=== PATIENT | male | born 1955 | race Caucasian/White ===

== ENCOUNTER → 2020-06-05 07:50 | Outpatient (CLI) | payer OTHER, SELFPAY ==
--- NOTE | 2020-06-05 07:59 | US_ITS ---
STUDY: ABDOMINAL ULTRASOUND - RIGHT UPPER QUADRANT REASON FOR VISIT: Male, 64 years old right upper quadrant pain, nausea TECHNIQUE: Ultrasound evaluation of the right upper quadrant was performed with real-time and static cervantes-scale imaging. TECHNICAL QUALITY: Adequate. COMPARISON: None. FINDINGS: Liver: The liver measures 15.8 cm. There is increased echogenicity consistent with fatty infiltration. The bile ducts are within normal limits. There is hepatic color flow. The direction of portal flow is hepatopetal. There is no demonstrated mass lesion. Gallbladder: The gallbladder is contracted, with multiple echogenic shadowing gallstones and wall thickening. Gallbladder wall measures up to 3.6 mm in thickness. Images show evidence of a JAROCHO sign which is suspicious for cholecystitis Common Bile Duct (C.B.D.): The common bile duct measures 3.7 mm. Pancreas: Normal size of the head, body and tail of the pancreas. There is increased echogenicity of the pancreas. There is no demonstrated pancreatic mass or cyst. Right Kidney: Normal size of the right kidney. The right kidney measures 10.5 x 5.4 x 5.4 cm. Normal renal cortex. The right cortex measures 1.6 cm. There is no demonstrated renal mass or cyst. There is no right hydronephrosis. US/Abdomen Limited IMPRESSION: Contracted gallbladder with multiple shadowing echogenic gallstones and abnormal wall thickness. Images show a JAROCHO sign suspicious for cholecystitis. However, corporate security officer notes a negative Pacheco''s sign and there is no pericholecystic fluid. If physical findings are equivocal, a HIDA scan may be of benefit for further evaluation Diffuse fatty infiltration of the liver, no discrete lesion Electronically Signed: Wilian Bender MD at 10:50 EDT , Service support ,
== END ==
PROVIDERS: PCP Family Medicine; Referring Provider Family Medicine; Visit Provider Family Medicine
DX: K80.20 Calculus of gallbladder without cholecystitis without obstruction (principal)
CPT/HCPCS: 76705

== ENCOUNTER → 2020-07-31 13:58 | Outpatient (CLI) | payer OTHER, SELFPAY ==
[2020-07-03 15:11] VITALS: BMI 31.7
--- NOTE | 2020-07-31 13:44 | EKG12_ITS ---
Test Reason : PREOP Blood Pressure : / mmHG Vent. Rate : 061 BPM Atrial Rate : 061 BPM P-R Int : 150 ms QRS Dur : 086 ms QT Int : 412 ms P-R-T Axes : 064 071 133 degrees QTc Int : 414 ms Normal sinus rhythm ST & T wave abnormality, consider lateral ischemia Abnormal ECG Confirmed by TEDDY CARRENO, KEZIA ([id number]), publications editor FIFI GARCIA ([id number]) on 08/04/2020 10:21:05 AM Referred By: Marcos Hart Confirmed By:KEZIA ESPINAL MD
[2020-07-31 14:43] LABS: Hematocrit 46.8 % (40-54); Hemoglobin 15.5 g/dL (13.0-16.5); Mean Corp Hgb Conc 33.1 g/dL (32-36); Mean Corpuscular Hgb 28.9 pg (27.0-32.0); Mean Corpuscular Volume 87.2 fL (80-94); Platelet Count 179 K/mm3 (150-450); RBC Distribution Width CV 12.9 % (11.6-14.6); RBC Distribution Width SD 40.7 fl (35.1-43.9); Red Blood Count 5.37 M/mm3 (4.6-6.2); White Blood Count 6.5 K/mm3 (4.4-11.0)
[2020-07-31 15:13] LABS: Anion Gap 5 (5-15); BUN 22 mg/dL (7-18); BUN/Creat Ratio 17.3 RATIO (10-20); Calcium,Total 9.5 mg/dL (8.5-10.1); Chloride 106 mmol/L (98-107); Creatinine, Serum 1.27 mg/dL (0.70-1.30); EST Glomerular Filtration Rate 61 mL/min (>60); Est Glom Filt Rate - Afr Amer 74 mL/min (>60); Glucose 104 mg/dL (74-106); Potassium 4.3 mmol/L (3.5-5.1); Sodium Level 138 mmol/L (136-145)
== END ==
PROVIDERS: PCP Family Medicine; Referring Provider Surgery; Visit Provider Surgery
DX: Z01.818 Encounter for other preprocedural examination (principal); Z20.828 Contact with and (suspected) exposure to other viral communicable diseases
CPT/HCPCS: 36415; 80048; 85027; 87426; 93005; C9803

== ENCOUNTER → 2020-09-02 07:10 | Outpatient (CLI) | payer OTHER, SELFPAY ==
[2020-08-14 11:47] VITALS: BMI 31.9
--- NOTE | 2020-09-02 07:14 | ECHOCS_ITS ---
Version 2 Reason For Study: HTN Procedure This was a 2D Doppler, Color Flow transthoracic echocardiogram. The study was technically difficult. Contrast injection was performed. DEFINITY REACTION (chest pain and back pain) DO NOT USE IN FUTURE. Exam performed in department. Left Ventricle Normal LV size. Mild concentric left ventricular hypertrophy. Left ventricular systolic function is normal. The estimated ejection fraction is 65 %. Stage 1 diastolic dysfunction. No regional wall motion abnormalities noted. Right Ventricle Normal RV size. Normal systolic function. Atria Normal left atrium. Normal right atrium. Mitral Valve Normal mitral valve. Tricuspid Valve Normal tricuspid valve. Aortic Valve Normal aortic valve. Pulmonic Valve Normal pulmonic valve. Great Vessels Normal aortic root. The pulmonary artery is normal size. Normal inferior vena cava. Pericardium/Pleural No pericardial effusion. Medication 22 gauge I.V. with prn adaptor inserted into right arm. Diluted definity 3ml given slow IV push to enhance endocardial definition. MMode/2D Measurements & Calculations LVIDd: 4.9 cm IVSd: 1.3 cm Ao root diam: 3.5 cm LVIDs: 2.9 cm LVPWd: 1.3 cm LA dimension: 4.5 cm FS: 41.5 % LAV(MOD-bp): 63.4 ml LA A4 area: 20.9 cm2 RA A4 area: 19.6 cm2 LAV(MOD-bp) Indexed: 30.4 ml/m2 LAV(MOD-sp2): 57.6 ml LAV(MOD-sp4): 62.3 ml Time Measurements MV dec time: 0.24 sec Doppler Measurements & Calculations MV E max hugo: 53.6 cm/sec Lat Peak E' Hugo: 9.3 cm/sec Med Peak E' Hugo: 6.0 cm/sec MV A max hugo: 66.1 cm/sec E/E' lat: 5.8 E/E' med: 8.9 MV E/A: 0.81 MV V2 max: 71.2 cm/sec MV P1/2t max hugo: 57.7 cm/sec Ao V2 max: 147.7 cm/sec MV max P.0 mmHg MV P1/2t: 114.0 msec Ao max P.7 mmHg MV V2 mean: 34.8 cm/sec MV dec slope: 148.3 cm/sec2 MV mean P.58 mmHg MV V2 VTI: 20.8 cm MVA(P1/2t): 1.9 cm2 LV V1 max: 95.1 cm/sec PA V2 max: 81.9 cm/sec LV V1 max P.6 mmHg ECHO/Echo Complete W/ Contrast Interpretation Summary Normal LV size. Left ventricular systolic function is normal. The estimated ejection fraction is 65 %. No regional wall motion abnormalities noted. Stage 1 diastolic dysfunction. Mild concentric left ventricular hypertrophy. Ordering Physician: David Gramajo Referring Physician: Ronn Sánchez Performed By: Daryl Sousa RCS
--- NOTE | 2020-09-02 18:29 | STRESSREP ---
Stress Test Report Exercise myocardial perfusion stress test. Preoperative evaluation for gallbladder surgery. Stress protocol: Resting EKG demonstrates normal sinus rhythm with a rate of 57 bpm normal intervals are noted resting blood pressure is 140/88 mmHg. The patient exercised according to regular Jayson protocol for total duration of 6 minutes. Patient completed stage II of the Jayson protocol. The maximum heart rate attained was 137 bpm which was 87% of maximum. Heart rate the maximum workload was 7 metabolic equivalents. At rest there were nonspecific EKG no acute changes noted and T wave inversions noted in lead V5 and V6. At peak exercise there was normalization of the T wave inversions noted in the lateral leads but horizontal ST depression for approximately 1 mm noted in leads II, III and aVF suggestive of ischemia. During recovery there was rapid improvement of the above changes. The peak blood pressure was 212 100 mmHg which was a hypertensive response to exercise with a rate-pressure product of 29,000. Myocardial perfusion protocol. 11.9 mCi of technetium 99m sestamibi was injected at rest. The patient exercised according to regular Jayson protocol for total duration of 6 minutes. At peak exercise 33.5 mCi of technetium 99m sestamibi was injected stress images were obtained stress and rest images were reconstructed and compared in the short axis vertical long and horizontal long axis. Gated images were also obtained. Perfusion SPECT analysis: Review of the stress images demonstrate normal uptake of tracer noted in all areas of myocardium except for a small portion of the mid anterior wall. This area appeared to demonstrate mild reduction of perfusion. The rest of the moyer appear to be normally perfused. During rest there was improvement and normalization of perfusion suggesting a mild amount of mid anterior ischemia. The rest of the moyer were normally perfused. Gated SPECT analysis: The gated ejection fraction is 65%. Conclusion: Mildly abnormal myocardial perfusion stress test with mid anterior ischemia at a moderate workload. Preserved ejection fraction.
== END ==
PROVIDERS: PCP Family Medicine; Referring Provider Internal Medicine Cardiovascular Disease; Visit Provider Internal Medicine Cardiovascular Disease
DX: R94.31 Abnormal electrocardiogram [ECG] [EKG] (principal); I10 Essential (primary) hypertension
CPT/HCPCS: 78452; 93017; 93306; A9500; Q9957; A4216; C8929; J3490

== ENCOUNTER 2020-09-11 06:57 | Day surgery (SDC) | payer OTHER, SELFPAY ==
[2020-08-14 11:47] VITALS: BMI 31.9
--- NOTE | 2020-09-03 16:40 | RAD_ITS ---
STUDY: X-RAY CHEST REASON FOR EXAM: Male, 65 years old. For heart cath TECHNIQUE: PA and lateral views of the chest. COMPARISON: None. FINDINGS: The lungs are clear and expanded. There is no demonstrated pleural abnormality. Normal size heart. Normal mediastinum and shay. Normal visualized pulmonary arteries. There is atherosclerotic calcification of the aortic arch with tortuosity. There are diffuse degenerative changes of the visualized thoracic spine. 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 There is no demonstrated abnormality of the visualized soft tissue structures of the upper abdomen. RAD/Chest PA and Lateral IMPRESSION: No acute abnormality is seen. Electronically Signed: Brandon Foster MD at 8:33 EDT , Service support ,
[2020-09-03 17:12] LABS: Hematocrit 44.9 % (40-54); Hemoglobin 14.7 g/dL (13.0-16.5); Mean Corp Hgb Conc 32.7 g/dL (32-36); Mean Corpuscular Volume 88.6 fL (80-94); Mean Platelet Vol. 10.9 fl (6.2-12.0); Platelet Count 169 K/mm3 (150-450); RBC Distribution Width CV 13.3 % (11.6-14.6); RBC Distribution Width SD 43.1 fl (35.1-43.9); Red Blood Count 5.07 M/mm3 (4.6-6.2); White Blood Count 6.8 K/mm3 (4.4-11.0)
[2020-09-03 17:20] LABS: Prothrombin Time (Protime)PT. 12.8 SECONDS (11.7-14.9)
[2020-09-03 17:37] LABS: Anion Gap 8 (5-15); BUN 28 mg/dL (7-18); BUN/Creat Ratio 21.9 RATIO (10-20); Chloride 105 mmol/L (98-107); Creatinine, Serum 1.28 mg/dL (0.70-1.30); EST Glomerular Filtration Rate 60 mL/min (>60); Est Glom Filt Rate - Afr Amer 73 mL/min (>60); Glucose 91 mg/dL (74-106); Sodium Level 141 mmol/L (136-145)
[2020-09-04 09:32] VITALS: BMI 31.9
--- NOTE | 2020-09-11 08:34 | CL.D_ITS ---
Patient Name: FAISAL POPE Study Date: 09/11/2020 Performing: David Gramajo MD Ht: 68 inches 173 cm : 1955 Wt: 209.7 lbs 95 kg Age: 65 Gender: male BSA: 2.09 PROCEDURE(S) PERFORMED HN91-NES/COR/LV CLINICAL PROFILE AND INDICATIONS Indications: Suspected CAD Heart Failure: None Stress/Imaging Date: 09/02/20ress Test with SPECT MPI: Positive Intermediate Risk CAD Presentations: Symptom unlikely to be ischemic. CONCLUSIONS Normal coronary arteries Normal LV size, wall motion,and systolic function RECOMMENDATIONS Medical therapy DESCRIPTION OF PROCEDURE The patient arrived to the procedure lab. The risks and benefits of the procedure as well as a full d escription of our services here and current unavailability of surgical backup were fully explained to the patient and/or their significant other prior to the catheterization. The Timeout was completed, verifying the correct patient and procedure. The patient's procedural site was prepped and draped in the usual fashion. Local anesthetic was given subcutaneously to right radial region with Lidocaine 2% . Using a modified Seldinger technique, arterial access was obtained via the right radial artery, a 6 Fr sheath was inserted. Left Coronary Artery selective angiography was performed in multiple views u sing a 5 Fr. 4.0 [place] catheter. Right Coronary Artery selective angiography was then performed in mu ltiple views using a 5 Fr. 4.0 [place] catheter. Left Ventriculography was performed in TANG projection using a 5 Fr. Pigtail catheter. LV to AO pullback pressures were then recorded.The arterial sheath was pulled and a TR Band was applied for hemostasis. 10cc CORONARY ANGIOGRAPHY DOMINANCE: Right Dominant LEFT HEART ASSESSMENT Left Ventricular Ejection Fraction: by LV Gram 60 % Normal LV wall motion Normal Left Ventricular systolic function Normal Left Ventricular systolic function LEFT MAIN: Angiographically normal LEFT ANTERIOR DESCENDING ARTERY: Angiographically normal CIRCUMFLEX ARTERY: Angiographically normal RIGHT CORONARY ARTERY: Angiographically normal COMPLICATIONS No Complications PROCEDURE MEDICATIONS Fentanyl 50 mcg IV Versed 1 mg IV Versed 1 mg IV Fentanyl 25 mcg IV Oxygen: 2 L/min via nasal cannula Heparin given IA 09/11/2020 08:15:36 Verapamil 2.5mg, Ntg 100mcgs, 3000 units of Heparin given IA 09/11/2020 08:15:36 SUMMARY OF HEMODYNAMIC DATA Time AIR REST ECG 07:16:29 AO 107/73 (88) SA 08:18:02 LV 118/16, 27 08:22:52 LV 125/17, 24 08:22:58 LV 118/22, 29 08:24:06 LVp 120/16, 28 08:24:11 AOp 114/0 (61) 08:24:16 Signed By David Gramajo MD On 09/11/2020 08:33:52 David Gramajo MD
== END 2020-09-11 10:05 | disposition home or self-care (01) ==
LOC: CLSP 06:57
PROVIDERS: PCP Family Medicine; Referring Provider Internal Medicine Cardiovascular Disease; Visit Provider Internal Medicine Cardiovascular Disease
DX: R94.31 Abnormal electrocardiogram [ECG] [EKG] (principal); I10 Essential (primary) hypertension; Z01.810 Encounter for preprocedural cardiovascular examination; F17.200 Nicotine dependence, unspecified, uncomplicated
CPT/HCPCS: 36415; 71046; 80048; 85027; 85610; 85730; 87426; 93458; 99152; 99153; J7040; Q9967; C1769; C1894

== ENCOUNTER 2020-11-20 20:15 | Emergency (ER) | payer OTHER, SELFPAY ==
[2020-11-20 20:16] VITALS: BP 168/78; PULSE 74; RESP 18; TEMP 36.6; O2SAT 98; BMI 31.6
[2020-11-20 20:45] LABS: Bacteria 0 SEEN /hpf (None Seen); Mucous, Urine 0 SEEN /hpf (<or=2+)
[2020-11-20 20:48] LABS: Color, Urine Yellow (Yellow); Glucose, Dipstick Normal (Normal); Ketone-Dipstick Negative (Negative); Leukocyte Esterase-Dipstick 100 /ul (Negative); Nitrite-Dipstick Negative (Negative); Occult Blood-Urine 250 /ul (Negative); Protein-Dipstick 30 mg/dl (Negative); Specific Gravity, Urine 1.025 (1.002-1.030); Urine Bilirubin Dipstick Negative (Negative); Urine Clarity Sl. Cloudy (Clear); Urine Urobilinogen Normal (Normal)
[2020-11-20 20:58] LABS: Red Blood Cells-Urine 10-25 SEEN /hpf (0-5); Squamous Epithelial Cells - UA 0-5 SEEN /hpf (0-5); White Blood Cells 5-10 SEEN /hpf (0-5)
--- NOTE | 2020-11-20 21:38 | CT_ITS ---
INDICATION: Painless gross hematuria EXAMINATION: CT Abdomen And Pelvis W/ Contrast Injection TECHNIQUE: Helically acquired images were obtained of the abdomen and pelvis after IV contrast. A radiation dose optimization technique was used for this scan. IV Contrast dosage and agent: IV 100mL Isovue-300 Oral contrast: None. COMPARISON: None. FINDINGS: Visualized lung bases: Unremarkable Liver: Unremarkable Gallbladder: Unremarkable Spleen: Unremarkable Pancreas: Unremarkable Adrenal Glands: Unremarkable Kidneys: 5 mm stone seen in the left renal pelvis with no significant hydroureteronephrosis. Vasculature: Mild scattered aortoiliac atherosclerotic calcifications. GI Tract: Unremarkable Lymphadenopathy: None Peritoneum: No ascites. Bladder: Unremarkable Reproductive organs: There are prostatic calcifications. Bones/Soft tissues: There are diffuse degenerative changes of the spine. CT/Abdomen/Pelvis W IV Cont ONLY IMPRESSION: 5 mm stone seen in the left renal pelvis with no significant hydroureteronephrosis. Electronically Signed: Mateo Swenson MD at 23:03 EDT Tel , Service support ,
--- NOTE | 2020-11-20 21:53 | EX.ED.DYSGE1 ---
HPI History of Present Illness Chief Complaint: Complaint Informant: patient and spouse/S.O. Onset/Context/Timing Onset: Today Context: Sudden Onset Timing: Continuous Quality: Painless gross hematuria Location: Current Severity: Mild Maximum Severity: Moderate Worsened by: Nothing Relieved by: Nothing Associated Symptoms Associated Symptoms: None Narrative Narrative: Patient is a 65-year-old male who presents with painless gross hematuria that he noted when he used the restroom after work. He went to the urgent care. He had gross hematuria there as well. He was referred to the emergency department. He denies night sweats. Denies weight loss. He denies back or flank pain. He does have a remote history of renal lithiasis. He also has cholelithiasis. He is scheduled for cholecystectomy next week. He is not on an anticoagulant. He is not on Brilinta or Plavix. He denies bruising easily. Denies bleeding of his gums. He denies blood or mucus in his stool. He is on baby aspirin. Prior similar symptoms: No Recent Illness/Hospitalization: [facility] Medical History Abnormal EKG Anxiety Arthritis Diarrhea Essential (primary) hypertension Gallstones Histoplasmosis (2015) History of pain when walking Hyperlipidemia Injury of back Nicotine dependence Prostate disease Renal calculi Syncope Wears dentures Home Medications lisinopril 10 mg tablet 10 mg PO DAILY 07/03/20 [History Last Taken 09/11/20] sertraline 100 mg tablet 100 mg PO DAILY 07/03/20 [History Last Taken 09/11/20] ascorbic acid (vitamin C) [Vitamin C] 250 mg PO DAILY 07/29/20 [History Last Taken Unknown] cholecalciferol (vitamin D3) [Vitamin D3] 50 mcg PO MOWEFR 07/29/20 [History Last Taken Unknown] folic acid 1 mg PO DAILY 07/29/20 [History Last Taken Unknown] ginseng 100 mg PO DAILY 07/29/20 [History Last Taken Unknown] magnesium 100 mg PO DAILY 07/29/20 [History Last Taken Unknown] pyridoxine (vitamin B6) [Vitamin B-6] 100 mg PO DAILY 07/29/20 [History Last Taken Unknown] saw palmetto 1,000 mg PO DAILY 07/29/20 [History Last Taken Unknown] vitamin E 200 unit PO MOWEFR 07/29/20 [History Last Taken Unknown] zinc 100 mg PO MOWEFR 07/29/20 [History Last Taken Unknown] omeprazole 40 mg capsule,delayed release 40 mg PO DAILY #30 cap 08/07/20 [Rx Last Taken Unknown] aspirin [Aspir-81] 81 mg PO DAILY 09/11/20 [History Last Taken 09/11/20] Allergy/AdvReac Type Severity Reaction Status Date / Time amphotericin B Allergy Mild PT UNSURE Verified 11/11/20 09:38 [From AmBisome] OF REACTION perflutren [From Definity] AdvReac Other Verified 11/11/20 09:38 Family History Father Colon cancer Sister Hypertension Brother Hypertension Surgical History History of left heart catheterization (09/11/20) History of lithotripsy Hx of ultrasound guided needle biopsy of lung Social History (Updated 11/20/20 @ 21:[address] Yves Gibson MD) household members: spouse Smoking Status: Never smoker Smokeless tobacco user: chewing tobacco alcohol intake: current alcohol intake frequency: a few times a month substance use type: does not use ROS ROS ED Constitutional Constitutional ED: Denies chills, fever(s), subjective, sweats or weight loss Eyes Eyes: Denies blurry vision, change in vision or diplopia ENT ENT ED: Denies ear pain, rhinorrhea or sore throat Cardiovascular Cardiovascular: Denies chest pain, orthopnea, palpitations, paroxysmal nocturnal dyspnea or racing heartbeat Respiratory/Chest Respiratory/Chest: Denies cough, dyspnea, dyspnea on exertion, orthopnea, paroxysmal nocturnal dyspnea or sputum Gastrointestinal Gastrointestinal: Denies abdominal pain, constipation, diarrhea, melena, nausea or vomiting Genitourinary Genitourinary ED: Reports hematuria; Denies dysuria or urinary frequency Musculoskeletal Musculoskeletal: Denies arthralgias, back pain, myalgias or neck pain Neurologic Neurologic: Denies headache(s), paresthesias or weakness Endocrine Endocrinology: Denies polydipsia or polyuria Hematologic/Lymphatic Hematologic/Lymphatic: Denies anemia, easy bleeding or easy bruising EXAM Physical Exam Const Vital Signs: 11/20/20 20:16 Temperature 98 F Temperature Source Temporal Pulse Rate 74 Respiratory Rate 18 Blood Pressure 168/78 H Blood Pressure Mean 108 Pulse Ox 98 Oxygen Delivery Method Room Air Positive well nourished and well developed General Appearance ED: well developed and NAD HEENT HEENT Narrative: Head is atraumatic normocephalic. Ears normal. Nares patent. Eyes PERRL and EOMs intact bilaterally General Eye ED: Negative for pale conjunctiva or scleral icterus Neck no lymphadenopathy, supple and no JVD Chest Wall inspection of chest normal and palpation of chest normal Resp normal respiratory effort and clear to auscultation bilaterally Cardio regular rate, regular rhythm, S1 normal heart sound, S2 normal heart sound and no murmurs GI non-tender, non-distended and no masses; Negative for hepatosplenomegaly GI Narrative: Patient has a small reducible umbilical hernia Auscultation: normoactive bowel sounds Palpation: soft; Negative for tender, guarding or rebound tenderness present Back/Spine no CVA tenderness Cervical Spine: Negative for cervical spine tenderness Thoracic Spine / Upper Back: Negative for thoracic spinal tenderness or paraspinal muscle tenderness Extremity normal to inspection General Extremety ED: Negative for edema or tenderness General Extremity: Negative for edema Neuro oriented x3, No CN's II-XII intact bilaterally and no sensory deficits noted Sensorium / Orientation: alert Motor Exam: Negative for strength 5/5 throughout Psych mental status grossly normal Skin no rashes or lesions noted, no wounds and skin turgor normal MDM MDM MDM Narrative Medical decision making narrative: With gross painless hematuria need to rule out malignancy. Appropriate blood work was ordered, UA and CT of the abdomen pelvis with IV contrast. Lab Data Attestation: I reviewed the patient's lab results. Labs: Laboratory Results - last 24 hr 11/20/20 11/20/20 11/20/20 20:22 21:54 21:54 WBC 5.8 RBC 4.79 Hgb 14.4 Hct 42.2 MCV 88.1 MCH 30.1 MCHC 34.1 RDW Std Deviation 42.7 RDW Coeff of Nessa 13.2 Plt Count 152 MPV 10.9 Immature Gran % (Auto) 0.700 Neut % (Auto) 52.4 Lymph % (Auto) 25.2 Pratt % (Auto) 11.3 H Eos % (Auto) 9.9 H Baso % (Auto) 0.5 Absolute Neuts (auto) 3.1 Absolute Lymphs (auto) 1.47 Nucleated RBC % 0 Sodium 141 Potassium 4.0 Chloride 112 H Carbon Dioxide 27.0 Anion Gap 2 L BUN 24 H Creatinine 1.20 Estim Creat Clear Calc 60.96 Est GFR (MDRD) Af Amer 79 Est GFR (MDRD) Non-Af 65 BUN/Creatinine Ratio 20.0 Glucose 119 H Calcium 9.1 Urine Color Yellow Urine Clarity Sl. Cloudy Urine pH 5.0 Ur Specific Sabinal 1.025 Urine Protein 30 H Urine Glucose (UA) Normal Urine Ketones Negative Urine Occult Blood 250 H Urine Nitrite Negative Urine Bilirubin Negative Urine Urobilinogen Normal Ur Leukocyte Esterase 100 H Urine RBC 10-25 SEEN Urine WBC 5-10 SEEN Ur Squamous Epith Cells 0-5 SEEN Urine Bacteria 0 SEEN Urine Mucus 0 SEEN Radiography Diagnostic Testing: Radiology Impression Abdomen/Pelvis CT 11/20/20 21:38 IMPRESSION: 5 mm stone seen in the left renal pelvis with no significant hydroureteronephrosis. Electronically Signed: Mateo Swenson MD at 23:03 EDT Tel , Service support , Discharge Plan Triage Chief Complaint: Complaint ED Provider: Yves Gibson Dx/Rx/DC Orders Clinical Impression: Calculus of left kidney, Painless hematuria Instructions: ED Hematuria, ED Kidney Stone Undescended No ... Prescriptions: No Action sertraline 100 mg tablet 100 mg PO DAILY RF: 0 lisinopril 10 mg tablet 10 mg PO DAILY RF: 0 zinc 100 mg Tablet 100 mg PO MOWEFR RF: 0 ginseng 100 mg Capsule 100 mg PO DAILY RF: 0 vitamin E 200 unit Capsule 200 unit PO MOWEFR RF: 0 ascorbic acid (vitamin C) [Vitamin C] 250 mg Tablet 250 mg PO DAILY RF: 0 magnesium 100 mg Capsule 100 mg PO DAILY RF: 0 folic acid 1 mg Tablet 1 mg PO DAILY RF: 0 pyridoxine (vitamin B6) [Vitamin B-6] 100 mg Tablet 100 mg PO DAILY RF: 0 saw palmetto 500 mg Capsule 1,000 mg PO DAILY RF: 0 cholecalciferol (vitamin D3) [Vitamin D3] 50 mcg (2,000 unit) Capsule 50 mcg PO MOWEFR RF: 0 aspirin [Aspir-81] 81 mg Tablet,Delayed Release (Dr/Ec) 81 mg PO DAILY RF: 0 omeprazole 40 mg capsule,delayed release(DR/EC) 40 mg PO DAILY Qty: 30 RF: 0 Primary Care Provider: Ronn Sánchez Referrals: Ronn Sánchez MD [Primary Care Provider] - 1-2 Weeks Disposition Disposition: Home, Self Care
[2020-11-20 22:04] LABS: Absolute Lymphocyte Count 1.47 X10^3/uL (0.83-4.51); Absolute Neutrophil Count 3.1 X10^3/uL (2.0-7.7); Basophil# 0.03 X10^3/uL; Basophil% 0.5 % (0-1); Eosinophil# 0.58 X10^3/uL; Eosinophils% 9.9 % (0-5); Hematocrit 42.2 % (40-54); Hemoglobin 14.4 g/dL (13.0-16.5); Lymphocyte # 1.47 X10^3/ul (0.83-4.51); Lymphocyte % 25.2 % (19-41); Mean Corp Hgb Conc 34.1 g/dL (32-36); Mean Corpuscular Hgb 30.1 pg (27.0-32.0); Mean Corpuscular Volume 88.1 fL (80-94); Mean Platelet Vol. 10.9 fl (6.2-12.0); Monocyte# 0.66 X10^3/uL; Monocyte% 11.3 % (0-10); NRBC Flagged by Analyzer 0 % (0-5); Neutrophil # 3.05 X10^3/uL (2.7-7.7); Neutrophil % 52.4 % (47-70); Platelet Count 152 K/mm3 (150-450); RBC Distribution Width CV 13.2 % (11.6-14.6); RBC Distribution Width SD 42.7 fl (35.1-43.9); Red Blood Count 4.79 M/mm3 (4.6-6.2); White Blood Count 5.8 K/mm3 (4.4-11.0)
[2020-11-20 22:16] LABS: Anion Gap 2 (5-15); BUN 24 mg/dL (7-18); Calcium,Total 9.1 mg/dL (8.5-10.1); Chloride 112 mmol/L (98-107); EST Glomerular Filtration Rate 65 mL/min (>60); Est Glom Filt Rate - Afr Amer 79 mL/min (>60); Estimated Creatinine Clearance 60.96 ml/min; Glucose 119 mg/dL (74-106); Sodium Level 141 mmol/L (136-145)
== END 2020-11-20 23:18 | disposition home or self-care (01) ==
PROVIDERS: Emergency Provider Emergency Medicine; PCP Family Medicine
DX: R31.0 Gross hematuria (principal); N20.0 Calculus of kidney; I10 Essential (primary) hypertension; E78.5 Hyperlipidemia, unspecified
CPT/HCPCS: 74177; 80048; 81001; 85025; 99283; Q9967; A4216

== ENCOUNTER 2020-12-03 08:40 | Day surgery (SDC) | payer OTHER, SELFPAY ==
[2020-12-03] VITALS (7 sets, daily range): BP systolic 108–148; BP diastolic 65–86; PULSE 56–75; RESP 16–18; TEMP 36.6–37.4; O2SAT 91–100; BMI 31.2
[2020-12-03] MEDS: Lactated Ringers 1,000 ML 100 ML IV ×2 (08:45→11:45)
--- NOTE | 2020-12-03 08:51 | EKG12_ITS ---
Test Reason : POST OP Blood Pressure : / mmHG Vent. Rate : 062 BPM Atrial Rate : 062 BPM P-R Int : 146 ms QRS Dur : 084 ms QT Int : 430 ms P-R-T Axes : 066 027 102 degrees QTc Int : 436 ms Normal sinus rhythm ST & T wave abnormality, consider anterolateral ischemia Abnormal ECG When compared with ECG of 31-JUL-2020 13:49, No significant change was found Confirmed by LEO CARRENO, VY ([id number]), loan expeditor FIFI GARCIA ([id number]) on 12/08/2020 10:23:03 AM Referred By: Marcos Hart Confirmed By:VY BAILEY MD
--- NOTE | 2020-12-03 09:17 | HP.PCM_ITS ---
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 Required: No Is patient in pain?: No Allergies amphotericin B [From AmBisome] Allergy (Mild, Verified 11/11/20 09:38) PT UNSURE OF REACTION perflutren [From Definity] Adverse Reaction (Verified 11/11/20 09:38) Other Medications lisinopril 10 mg tablet 10 mg PO DAILY 07/03/20 [History Confirmed 11/11/20] sertraline 100 mg tablet 100 mg PO DAILY 07/03/20 [History Confirmed 11/11/20] ascorbic acid (vitamin C) [Vitamin C] 250 mg PO DAILY 07/29/20 [History Confirmed 11/11/20] cholecalciferol (vitamin D3) [Vitamin D3] 50 mcg PO MOWEFR 07/29/20 [History Confirmed 11/11/20] folic acid 1 mg PO DAILY 07/29/20 [History Confirmed 11/11/20] ginseng 100 mg PO DAILY 07/29/20 [History Confirmed 11/11/20] magnesium 100 mg PO DAILY 07/29/20 [History Confirmed 11/11/20] pyridoxine (vitamin B6) [Vitamin B-6] 100 mg PO DAILY 07/29/20 [History Confirmed 11/11/20] saw palmetto 1,000 mg PO DAILY 07/29/20 [History Confirmed 11/11/20] vitamin E 200 unit PO MOWEFR 07/29/20 [History Confirmed 11/11/20] zinc 100 mg PO MOWEFR 07/29/20 [History Confirmed 11/11/20] omeprazole 40 mg capsule,delayed release 40 mg PO DAILY #30 cap 08/07/20 [Rx Confirmed 11/11/20] aspirin [Aspir-81] 81 mg PO DAILY 09/11/20 [History Confirmed 11/11/20] [facility] Medical History Abnormal EKG Anxiety Arthritis Diarrhea Essential (primary) hypertension Gallstones Histoplasmosis (2015) History of pain when walking Hyperlipidemia Injury of back Nicotine dependence Prostate disease Renal calculi Syncope Wears dentures Surgical History History of left heart catheterization (09/11/20) History of lithotripsy Hx of ultrasound guided needle biopsy of lung Family History Father Colon cancer Sister Hypertension Brother Hypertension Social History Smoking Status: Never smoker Smokeless tobacco user: chewing tobacco alcohol intake: current alcohol intake frequency: a few times a month HPI HPI HPI: FAISAL POPE, is a 65 M who presents to the office today for follow-up. Patient was scheduled to have laparoscopic cholecystectomy but preoperative testing showed an abnormal EKG. He went through cardiac testing and is now cleared for surgery. The patient reports his diarrhea is improved on the PPI but he is still having right upper quadrant pain and right back pain. ROS General General: No weight change, appetite, fatigue, colon cancer, breast cancer or weakness HEENT HEENT: No difficulty swallowing, eye injury, eye surgery, swollen glands or hoarseness Endo Endocrine: No thyroid disease, diabetes mellitus, thyroid cancer, Hair loss, heat intolerance or cold intolerance Skin Skin: No rash or changing moles Breast Breast: No left breast lump, right breast lump, nipple discharge, breast pain, abnormal mammogram, abnormal US or breast enlargement Musc Musculoskeletal: No back problems, arthritis, rheumatoid arthritis, gout or joint pain Cardio Cardiovascular: Yes high blood pressure; No murmur, pacemaker, heart disease, atrial fibrillation, heart attack, heart stent, palpitations, shortness of breat with exertion or chest pain Psych Psychiatric: Yes anxiety; No depression or hearing voices Resp Respiratory: No shortness of breath, No sleep apnea, No cough, No COPD, No asthma, No emphysema and No wheezing Gastro Gastrointestinal: Yes abdominal pain, No nausea or vomiting, Yes diarrhea, No constipation, No blood in stool, No acid reflux, No hemorrhoids, No ulcers, Yes gallbladder problem and No black,tarry stools [place] Hematologic: No blood thinners, No blood disorders, No bleeding, No anemia and No blood clots Neuro Neurologic: No system reviewed and no additional complaints, except as documented, No as per HPI, No abnormal gait, No abnormal hearing, No abnormal movements, No abnormal speech, No behavioral changes, No burning sensations, No confusion, No convulsions, No disequilibrium, No dizziness, No localized weakness, No frequent falls, No headache(s), No lack of coordination, No loss of vision, No memory loss, No numbness, No other visual disturbances, No radicular pain, No restless legs, No sensory deficit, No syncope, No tingling, No tremor(s), No weakness and No other Exam Const General: cooperative Orientation: alert and oriented x3 HENMT Head: normal to inspection Neck Neck: normal visual inspection and full ROM Chest Chest palpation & inspection: normal inspection of the chest Resp Effort & Inspection: normal respiratory effort Auscultation: clear to auscultation bilaterally Cardio Rate: regular rate Rhythm: regular rhythm GI Inspection: non-distended Palpation: soft, hernia umbilical and tender in the RUQ Skin General: no rashes or lesions noted Neuro General: patient alert and patient oriented x3 Extrem General: full ROM Psych Appearance: grossly normal Mental Status: mental status grossly normal Assessment and Plan Assessment and Plan (1) Gallstones: Status: Acute (2) Umbilical hernia: Status: Acute Qualifiers: Obstruction and gangrene presence: without obstruction or gangrene Qualified Code(s): K42.9 - Umbilical hernia without obstruction or gangrene Plan - Dr. Marcos Hart MD: Patient has cholelithiasis and did have early cholecystitis back in June. He is still having right upper quadrant I recommend laparoscopic cholecystectomy. The patient has a small buccal hernia which will be uses a port site and then repaired with suture. I discussed the procedure in detail with the patient. I discussed the risks, benefits, and alternatives of the procedure. I discussed the risks including but not limited to bleeding, infection, injury to surrounding organs such as the liver, bile duct, bowels. I did discuss the possibility of having to convert to an open procedure as well as the possibility that if any injuries occurred this may necessitate further surgery at a tertiary care center. Marcos Hart MD Pager: [facility] [address] [place] [address], [address] [place] [address] Office: I have re-examined the patient. There are no clinical changes since date of exam.
--- NOTE | 2020-12-03 10:00 | GALL_PTH ---
PATIENT: FAISAL POPE LOC: [facility] [place] U#:[id number] AGE/SX: 65/M ROOM: RE12/03/[address]: Dr. Marcos Hart MD : 1955 BED: DIS: 12/03/2020 SPEC #: [id number] RECD: 12/03/20 12:47 STATUS: LEE ANN CLAUDIO #: [id number] ADRIENNE: 12/03/20 10:[address]: Marcos Hart DEPT: SURGICAL PATHOLOGY RECD BY: Josi Salomon ENTERED: 12/04/20 08:41 SP TYPE: DIYA TILLEY DR: Dr. Ronn Sánchez MD Tissues: Gallbladder, NOS Procedures: Surgery Specimen Level III HEADER OPERATION: Laparoscopic cholecystectomy with IOC PRE-OP DIAGNOSIS: Gallstones, umbilical hernia TISSUE SUBMITTED: Gallbladder MICROSCOPIC DIAGNOSIS Gallbladder, cholecystectomy: Chronic cholecystitis and cholelithiasis. AM:sasha 12/07/2020 MICROSCOPIC DESCRIPTION Slides are reviewed. GROSS DESCRIPTION Received is one container labeled with the patient's name and designated gallbladder. The specimen consists of a gallbladder measuring 8 cm in length and up to 3.5 cm in diameter. The external surface is pink-sutton, smooth and glistening for the most part. Focally it is granular, hemorrhagic and contains cautery artifact. The gallbladder contains green-yellow mucoid bile and multiple yellowish-green stone and stone fragments measuring in aggregate 5 x 4 x 2 cm and 0.3 to 2 cm in greatest dimension. The mucosa is bile-stained and without any mass lesions. The gallbladder wall measures up to 0.3 cm in thickness. Radiology Special Procedure Tech sections from the gallbladder and the cystic duct are submitted in one cassette. / SJ:sasha 12/04/20 TC:3 [facility]: [id number]
--- NOTE | 2020-12-03 10:00 | RAD_ITS ---
INDICATION: PAIN EXAMINATION/TECHNIQUE: Limited spot intraoperative films are presented for evaluation. Total Fluoroscopic Time: 8.4 seconds Number of Fluoroscopic Images: 2 Radiation dosage : 3.59 mGy COMPARISON: 11/20/2020. FINDINGS: Spot fluoroscopic images obtained demonstrate contrast injection into the cystic duct, unremarkable opacification of the cystic duct is visualized, unremarkable opacification of the intra and extrahepatic ducts, no evidence of filling defect is visualized, unremarkable opacification of the pancreatic duct.. There is no biliary ductal dilatation. . There is free passage into the duodenum. There is subtle contrast opacification visualized at the level of the injection site, recommend correlation with operative report for details if this represents a bile leak. RAD/Cholangiogram/ O R,Initial IMPRESSION: Subtle contrast opacification visualized at the level of the injection site, recommend correlation with operative report for details if this represents a bile leak. Electronically Signed: Ayush Virgen MD at 11:53 EDT Tel , Service support ,
[2020-12-03] MEDS: Cefotetan 2 GM in 0.9% NS 100 ML IV (11:06)
[2020-12-03] MEDS: Bupivacaine 0.25% 30 ML Vial (11:55)
--- NOTE | 2020-12-03 12:00 | OP.PCM_ITS ---
Problems Associated Problem List Diagnoses (1) Umbilical hernia: (2) Gallstones: Report of Operation Date of Procedure: 12/03/20 Pre-Operative Diagnosis: Cholelithiasis with biliary colic and umbilical hernia Post-Operative Diagnosis: Same Surgery/Procedure Performed:: 1. Laparoscopic cholecystectomy with cholangiogram. 2. Umbilical hernia repair. Description of Procedure: After obtaining informed consent patient was brought back to the operating room. General anesthesia was induced. The abdomen was prepped and draped in usual sterile fashion. A curvilinear incision was made superior to the umbilicus and deepened to the level of fascia. The umbilical hernia was dissected free using electrocautery and this hernia was used to enter the abdomen. Finger sweep was performed and the Jones trocar was placed into the abdomen. The balloon was inflated. The abdomen was inflated to 15 mmHg. Next a camera was introduced into the abdomen and the abdomen was inspected. Nex t under direct visualization three 5-mm ports were placed one subxiphoid and 2 subcostal. Next the gallbladder was elevated and retracted toward the right shoulder. The peritoneum was stripped from the gallbladder. The infundibulum was located and retracted laterally. Next the triangle of Calot was dissected and the cystic duct and cystic artery were identified. Cholangiograms were performed. The Danielle clamp was used to clamp across the infundibulum and the catheter needle was inserted into the gallbladder. Under fluoroscopy contrast was instilled into the gallbladder and the common duct, cystic duct as well as proximal hepatic ducts were identified. There was good filling of the duodenum. There were no filling defects noted in the common bile duct. The clamp was removed as well as the needle and the infundibulum was grasped once more. Three hemolock clips were placed across the cystic duct. The cystic duct was then divided leaving 2 clips on the stump. The cystic artery was clipped and divided in the same fashion. The hook cautery was then used to take the gallbladder off of the gallbladder bed. Hemostasis was obtained. Gallbladder fossa was irrigated and no active bleeding or bile leakage was noted. Next the camera was introduced in the subxiphoid port. An Endopouch bag was placed through the umbilical port and the gallbladder was placed into it. The gallbladder was then removed through the umbilical incision. The camera was then reinserted through the umbilical port. The gallbladder fossa was inspected once more and noted to be hemostatic with no leaking bile. The abdomen was suctioned dry. The 5 mm ports were removed under direct visualization. The umbilical port was then removed and the air was removed from the abdomen. The umbilical hernia was closed with interrupted 0 Vicryl sutures. The umbilical port site was irrigated local anesthetic was administered to all the incisions. All the incisions were closed with interrupted subcuticular 4-0 Monocryl sutures followed by Steri- Strips and dressings. The patient was awoken and taken to PACU in stable condition. Admit VTE Documentation VTE Mechan Device Prophylaxis: SCD's
--- NOTE | 2020-12-03 12:02 | EX.PCM.DISCH ---
Discharge Instructions Procedure Gallbladder Diet Discharge Diet: Light diet - advance as tolerated Activity Discharge Activity: May Not Drive (for 2-3 days or while taking narcotic pain medications.) and - (Do not drive, work heavy equipment or sign legal documents for 24 hours.) May shower in (days): 1 Lifting Restrictions: 20 lbs for 2 weeks Additional Activity Instructions:: Pain medication may cause nausea. You should typically eat light foods as you take your pain medications. Pain medication may also cause constipation. If this is a problem for you, please discuss with your doctor. Dressing / Incision Call your doctor if your incision/area has: Continuous Slow Oozing, Sudden Increased Bleeding, Increased Pain/ Swelling, Increased Redness and Foul Smelling Discharge Call your doctor if you observe: Fever of 101 or Higher Suture Line Care: Avoid Pulling/Pushing and Avoid Pinching/Bending Remove Dressing in: 2 days Additional Dressing/Incision Instructions:: Leave operative bandaids on for 2 days. When you remove dressing, leave Steri-Strips on until your follow-up appointment, or until the Steri-Strips fall off on their own. Follow Up Care Please Follow Up With: Marcos Hart MD When: Please call to schedule 2 week follow up appointment. [phone] Test Results: Test results from this visit will be discussed in further detail at your follow-up appointment, if applicable. Discharge Plan Admission Attending Provider: Marcos Hart Primary Care Provider: Ronn Sánchez Discharge Orders/Prescriptions Prescriptions: New oxycodone-acetaminophen [Percocet] 5-325 mg tablet 1 - 2 tab PO Q4H PRN (Reason: pain) 5 Days Qty: 20 RF: 0 No Action sertraline 100 mg tablet 100 mg PO DAILY RF: 0 lisinopril 10 mg tablet 10 mg PO DAILY RF: 0 zinc 100 mg Tablet 100 mg PO MOWEFR RF: 0 ginseng 100 mg Capsule 100 mg PO DAILY RF: 0 vitamin E 200 unit Capsule 200 unit PO MOWEFR RF: 0 ascorbic acid (vitamin C) [Vitamin C] 250 mg Tablet 250 mg PO DAILY RF: 0 magnesium 100 mg Capsule 100 mg PO DAILY RF: 0 folic acid 1 mg Tablet 1 mg PO DAILY RF: 0 pyridoxine (vitamin B6) [Vitamin B-6] 100 mg Tablet 100 mg PO DAILY RF: 0 saw palmetto 500 mg Capsule 1,000 mg PO DAILY RF: 0 cholecalciferol (vitamin D3) [Vitamin D3] 50 mcg (2,000 unit) Capsule 50 mcg PO MOWEFR RF: 0 omeprazole 40 mg capsule,delayed release(DR/EC) 20 mg PO DAILY RF: 0 Referrals / Follow Up: Ronn Sánchez MD [Primary Care Provider] - Disposition Disposition (needs filled in before D/C Order can be placed): Home, Self Care
== END 2020-12-03 15:42 | disposition home or self-care (01) ==
LOC: SDC 08:41 → AC 08:41
PROVIDERS: PCP Family Medicine; Referring Provider Surgery; Visit Provider Surgery
PROC: (CPT 47610; principal; 2020-12-03 09:40)
PROC: (CPT 47563; 2020-12-03 09:40)
DX: K80.10 Calculus of gallbladder with chronic cholecystitis without obstruction (principal); K42.9 Umbilical hernia without obstruction or gangrene; E78.5 Hyperlipidemia, unspecified; I10 Essential (primary) hypertension; F17.220 Nicotine dependence, chewing tobacco, uncomplicated; Z79.82 Long term (current) use of aspirin
CPT/HCPCS: 47563; 49585; 74300; 76000; 88304; 93005; J7120; J2405

== ENCOUNTER 2023-02-14 13:05 | Emergency (ER) | payer MEDICARE, SELFPAY ==
[2023-02-14 13:06] VITALS: BP 175/85; PULSE 68; RESP 16; TEMP 36.6; O2SAT 98; BMI 31.8
[2023-02-14 13:19] LABS: Absolute Lymphocyte Count 1.63 X10^3/uL (0.83-4.51); Absolute Neutrophil Count 4.6 X10^3/uL (2.0-7.7); Basophil# 0.06 X10^3/uL; Basophil% 0.8 % (0-1); Eosinophil# 0.57 X10^3/uL; Eosinophils% 7.4 % (0-5); Hematocrit 49.5 % (40-54); Hemoglobin 16.1 g/dL (13.0-16.5); Lymphocyte # 1.63 X10^3/ul (0.83-4.51); Lymphocyte % 21.2 % (19-41); Mean Corp Hgb Conc 32.5 g/dL (32-36); Mean Corpuscular Hgb 29.1 pg (27.0-32.0); Mean Corpuscular Volume 89.4 fL (80-94); Mean Platelet Vol. 10.5 fl (6.2-12.0); Monocyte# 0.79 X10^3/uL; Monocyte% 10.3 % (0-10); NRBC Flagged by Analyzer 0 % (0-5); Neutrophil # 4.58 X10^3/uL (2.7-7.7); Neutrophil % 59.6 % (47-70); Platelet Count 174 K/mm3 (150-450); RBC Distribution Width CV 12.8 % (11.6-14.6); RBC Distribution Width SD 42.1 fl (35.1-43.9); Red Blood Count 5.54 M/mm3 (4.6-6.2); White Blood Count 7.7 K/mm3 (4.4-11.0)
[2023-02-14 13:34] LABS: AST(SGOT) 16 U/L (15-37); Alanine Aminotransfer ALT/SGPT 28 U/L (16-61); Alkaline Phosphatase 92 U/L (45-117); Anion Gap 5 (5-15); BUN 25 mg/dL (7-18); BUN/Creat Ratio 20.2 RATIO (10-20); Calcium,Total 9.5 mg/dL (8.5-10.1); Chloride 106 mmol/L (98-107); Creatinine, Serum 1.24 mg/dL (0.70-1.30); EST Glomerular Filtration Rate 62 mL/min (>60); Est Glom Filt Rate - Afr Amer 75 mL/min (>60); Estimated Creatinine Clearance 57.46 ml/min; Globulin 4.2 g/dL (2.2-4.2); Glucose 101 mg/dL (74-106); Potassium 4.5 mmol/L (3.5-5.1); Protein, Total 8.2 g/dL (6.4-8.2); Sodium Level 141 mmol/L (136-145)
[2023-02-14 14:03] LABS: Bacteria 0 SEEN /hpf (None Seen); Mucous, Urine 0 SEEN /hpf (<or=2+); Red Blood Cells-Urine 0 SEEN /hpf (0-5); Squamous Epithelial Cells - UA 0 SEEN /hpf (0-5)
--- NOTE | 2023-02-14 14:03 | CT_ITS ---
STUDY: CT ABDOMEN AND PELVIS WITH CONTRAST REASON FOR EXAM: Male, 67 years old. Right lower quadrant pain. RADIATION DOSAGE (If Supplied By Facility): CTDIvol = ( 13.45 ) mGy, DLP = ( 1018.22 ) mGycm TECHNIQUE: Transaxial images were obtained from the dome of the diaphragm to the symphysis pubis without oral contrast. IV 100mL Isovue-300 was administered. Sagittal and coronal images were reconstructed. Individualized dose optimization techniques were used for this CT. COMPARISON: Comparison is made with prior study November 20, 2020. FINDINGS: The visualized lung bases are unremarkable. The visualized portions of the heart are within normal limits. There is decreased attenuation of the liver consistent with steatosis. The patient is status post cholecystectomy. Borderline splenomegaly. Normal pancreas. Normal bilateral adrenal glands. Normal right kidney. Normal left kidney. Normal visualized stomach. Normal small intestine. A radiopaque tablet is seen in the cecum. The appendix is visualized and appears normal. There is scattered atherosclerotic calcification of the abdominal aorta, without a demonstrated aneurysm. Normal inferior vena cava. Normal retroperitoneum. Normal urinary bladder. Mild prostatic enlargement. Central prostatic calcifications. Small bilateral inguinal areas containing fat. There are degenerative changes of the visualized lumbar spine. CT/Abdomen/Pelvis W IV Cont ONLY IMPRESSION: Fatty infiltration of the liver. Status post cholecystectomy. Borderline splenomegaly. Electronically Signed: Brandon Foster MD at 14:49 EST ,
--- NOTE | 2023-02-14 14:09 | EDS_ITS ---
HPI <SCOTT Mckenzie - Last Filed: 02/14/23 15:19> History of Present Illness Chief Complaint: Abd Pain Narrative Narrative: Patient is 67-year-old male with history of hypertension, anxiety who presents to the emergency department with 2 days of right lower quadrant abdominal pain. He made an appoint with urgent care however urgent care called him and referred him to the emergency department. Patient denies any fever or chills, denies any bowel or bladder changes. Patient denies any nausea or vomiting. Patient is a pain is point tender to the right mid to lower abdomen. Only surgical history is gallbladder 2 years ago [facility] <SCOTT Mckenzie - Last Filed: 02/14/23 15:19> [facility] Medical History (Updated 02/14/23 @ 15:19 by SCOTT Mckenzie) Abnormal EKG Alcohol use Anxiety Anxiety Arthritis Cardiology follow-up encounter Diarrhea Essential (primary) hypertension Gallstones Gastric reflux Histoplasmosis (2014) History of echocardiogram History of pain when walking History of stress test Hyperlipidemia Injury of back Nicotine dependence Prostate disease Renal calculi Smoker Syncope Umbilical hernia Wears dentures Home Medications lisinopril 10 mg tablet 10 mg PO DAILY 07/03/20 [History Last Taken 12/03/20] sertraline 100 mg tablet 100 mg PO DAILY 07/03/20 [History Last Taken 09/11/20] ascorbic acid (vitamin C) 250 mg tablet (Vitamin C) 250 mg PO DAILY 07/29/20 [History Last Taken Unknown] cholecalciferol (vitamin D3) 50 mcg (2,000 unit) capsule (Vitamin D3) 50 mcg PO MOWEFR 07/29/20 [History Last Taken Unknown] folic acid 1 mg tablet 1 mg PO DAILY 07/29/20 [History Last Taken Unknown] ginseng 100 mg capsule 100 mg PO DAILY 07/29/20 [History Last Taken Unknown] magnesium 100 mg capsule 100 mg PO DAILY 07/29/20 [History Last Taken Unknown] pyridoxine (vitamin B6) 100 mg tablet (Vitamin B-6) 100 mg PO DAILY 07/29/20 [History Last Taken Unknown] saw palmetto 500 mg capsule 1,000 mg PO DAILY 07/29/20 [History Last Taken Unknown] vitamin E 200 unit capsule 200 unit PO MOWEFR 07/29/20 [History Last Taken Unknown] zinc 100 mg tablet 100 mg PO MOWEFR 07/29/20 [History Last Taken Unknown] omeprazole 40 mg capsule,delayed release 20 mg PO DAILY 12/01/20 [History Last Taken 12/03/20] oxycodone-acetaminophen 5 mg-325 mg tablet (Percocet) 1 - 2 tab PO Q4H PRN pain 5 days #20 tabs 12/03/20 [Rx Last Taken Unknown] Allergy/AdvReac Type Severity Reaction Status Date / Time amphotericin B Allergy Mild PT UNSURE Verified 02/14/23 13:08 [From AmBisome] OF REACTION perflutren [From Definity] AdvReac Other Verified 02/14/23 13:08 Family History Father Colon cancer Sister Hypertension Brother Hypertension Surgical History (Updated 12/01/20 @ 15:47 by Shobha Zaidi) History of left heart catheterization (09/11/20) History of lithotripsy Hx of ultrasound guided needle biopsy of lung Social History (Updated 11/20/20 @ 21:[address] Yves Gibson MD) household members: spouse Smoking Status: Current every day smoker tobacco type: smokeless tobacco Smokeless tobacco user: chewing tobacco alcohol intake: current alcohol intake frequency: a few times a month substance use type: does not use ROS <SCOTT Mckenzie - Last Filed: 02/14/23 15:19> ROS ED ROS Narrative Constitutional: Negative for fever, chills, weight loss, weakness Eyes: Negative for vision loss, vision change, double vision ENT: Negative for any sore throat, ear pain, congestion Cardiovascular: Negative for any chest pain, tightness, palpitations Respiratory: Negative for any cough, sputum production, hemoptysis, dyspnea, d yspnea on exertion, orthopnea Gastrointestinal: Negative for any nausea, vomiting, diarrhea, constipation, blood in stool, blood in vomit. Positive right lower quadrant abdominal pain : Negative for any urinary frequency, dysuria, retention, blood in urine Muscle skeletal: Negative for any myalgias, arthralgias, neck pain, back pain Neurological: Negative for any headache, syncope, paresthesias, dizziness Skin: Negative for any rashes, lumps, itching, abrasions, lacerations Psychiatric: Negative for any depression, anxiety, stress, suicidal ideation, homicidal ideation Hematologic: Negative for any easy bruising, excessive bruising, easy bleeding Allergies: Negative for any eczema, hives, rash EXAM <SCOTT Mckenzie - Last Filed: 02/14/23 15:19> Physical Exam Narrative Exam Narrative: Vital signs reviewed. HEET: Head normocephalic atraumatic, TMs clear bilaterally. Posterior pharynx is clear, moist mucous membranes. Nares clear bilaterally. Neck: Supple with no lymphadenopathy or tenderness. No signs of meningismus. Cardiac: Regular rate and rhythm no murmurs gallops or rubs, equal peripheral pulses bilaterally. Respiratory: Lungs clear to auscultation bilaterally. No chest tenderness. Abdomen: Soft, nondistended. No abdominal bruit or pulsatile masses. No hepatosplenomegaly. Point tenderness to the right lower quadrant negative right peritoneal signs. Extremities: No peripheral edema, no signs of gross trauma or deformity. Active full range of motion of all extremities. Neuro: Cranial nerves II through XII intact, no focal neurological deficits. Skin: Clean dry and intact with no rash, purpura, petechiae, vesicles or pustules. Backs/flank: No CVA tenderness, no midline spinal tenderness, no deformity. Psych: Normal mood and affect. No SI, HI or acute psychosis. Const Vital Signs: 02/14/23 13:06 Temperature 97.8 F Temperature Source Temporal Pulse Rate 68 Respiratory Rate 16 Blood Pressure 175/85 H Blood Pressure Mean 115 Pulse Ox 98 Oxygen Delivery Method Room Air <Dr. Beto Bermudez, - Last Filed: 02/14/23 15:57> Physical Exam Const Vital Signs: 02/14/23 13:06 Temperature 97.8 F Temperature Source Temporal Pulse Rate 68 Respiratory Rate 16 Blood Pressure 175/85 H Blood Pressure Mean 115 Pulse Ox 98 Oxygen Delivery Method Room Air MDM <SCOTT Mckenzie - Last Filed: 02/14/23 15:19> [facility] Lab Data Labs: Laboratory Results - last 24 hr 02/14/23 02/14/23 13:14 13:55 WBC 7.7 RBC 5.54 Hgb 16.1 Hct 49.5 MCV 89.4 MCH 29.1 MCHC 32.5 RDW Std Deviation 42.1 RDW Coeff of Nessa 12.8 Plt Count 174 MPV 10.5 Immature Gran % (Auto) 0.700 Neut % (Auto) 59.6 Lymph % (Auto) 21.2 Pine % (Auto) 10.3 H Eos % (Auto) 7.4 H Baso % (Auto) 0.8 Absolute Neuts (auto) 4.6 Absolute Lymphs (auto) 1.63 Nucleated RBC % 0 Sodium 141 Potassium 4.5 Chloride 106 Carbon Dioxide 30.0 Anion Gap 5 BUN 25 H Creatinine 1.24 Estim Creat Clear Calc 57.46 Est GFR (MDRD) Af Amer 75 Est GFR (MDRD) Non-Af 62 BUN/Creatinine Ratio 20.2 H Glucose 101 Calcium 9.5 Total Bilirubin 0.70 AST 16 ALT 28 Alkaline Phosphatase 92 Total Protein 8.2 Albumin 4.0 Globulin 4.2 Albumin/Globulin Ratio 1.0 Urine Color Yellow Urine Clarity Clear Urine pH 6.0 Ur Specific [place] 1.020 Urine Protein 15 H Urine Glucose (UA) Normal Urine Ketones Negative Urine Occult Blood Negative Urine Nitrite Negative Urine Bilirubin Negative Urine Urobilinogen Normal Ur Leukocyte Esterase 25 H Urine RBC 0 SEEN Urine WBC 0-5 SEEN Ur Squamous Epith Cells 0 SEEN Urine Bacteria 0 SEEN Urine Mucus 0 SEEN Radiography Diagnostic Testing: Clinical Impression(s) from Imaging Studies Abdomen/Pelvis CT 02/14/23 14:03 IMPRESSION: Fatty infiltration of the liver. Status post cholecystectomy. Borderline splenomegaly. Electronically Signed: Brandon Foster MD at 14:49 EST , Treatment and Re-Evaluation :: Patient appears to be in no obvious distress, vital signs are stable. Presenting to the emergency department with complaints of pain to the right lower quadrant of his abdomen. Differential diagnosis includes muscle strain, acute appendicitis, colitis, diverticulitis. He will be received IV fluids, I did offer the patient pain medicine however he refused. He will receive a CT scan of the abdomen pelvis.Patient's laboratory values showed normal CBC, patient's chemistries were unremarkable. Urinalysis will be sent. Patient CBC was unremarkable, chemistries were unremarkable. Patient's urinalysis was negative for any infection. CT scan of the abdomen pelvis showed fatty filtration of liver, status postcholecystectomy, no acute process. No evidence of any appendicitis. No evidence of colitis, bowel obstruction. At this time, patient will be diagnosed with abdominal strain. Patient will be given Toradol before discharge. Patient instructed to return for any worsening abdominal pain, fever chills nausea vomiting <Dr. Beto Bermudez, DO - Last Filed: 02/14/23 15:57> [facility] Narrative Medical decision making narrative: I have personally performed a face to face assessment of the patient and have reviewed the DIMA Note. I performed a substantive portion of the visit including all aspects of the following. My cross findings include: History: Patient presents with abdominal pain that began today. Patient states the pain is mainly in the right lower abdomen. Patient admits to some nausea but denies any vomiting. Patient denies any fevers or chills. Patient denies any urinary complaints. Patient denies any diarrhea, melena, or hematochezia. Exam: Vital signs are stable except for mildly elevated blood pressure 175/85. Patient is afebrile. Patient is in no acute distress. Oral mucosa is pink and moist. Neck is supple. Trachea is midline. There is no JVD. Heart was regular rate and rhythm. Lungs are clear and equal bilateral. Abdomen is soft. Bowel sounds are normal. There is tenderness over the right lower abdomen. There is mild rebound noted. There is a positive Rovsing sign. There is no guarding noted. Cranial nerves II through XII are intact. There are no focal motor or sensory deficits noted. Medical Decision Making: Differential diagnosis includes appendicitis, gastroenteritis, ureteral calculus, urinary tract infection, pyelonephritis, and viral illness. CBC will be obtained to assess for leukocytosis and anemia. Comprehensive metabolic profile will be obtained to assess for hepatic function, renal function, and electrolyte abnormality. Urinalysis will be obtained to assess for urinary tract infection and hematuria. CT scan of the abdomen pelvis will be obtained to assess for appendicitis, ureteral calculus, bowel obstruction, and perforation. Patient was given IV fluids and Toradol here. CBC was reviewed and was within normal limits. Comprehensive metabolic profile was reviewed. BUN was slightly elevated at 25. The remainder was within normal limits. Urinalysis was reviewed. There is no evidence of urinary tract infection or hematuria. CT scan of the abdomen pelvis was obtained. There is no evidence of appendicitis or bowel obstruction. There is no free air or free fluid. There is fatty infiltration of the liver. This was interpreted by the radiologist and was also independently reviewed by myself. Patient was advised of his findings. Patient was instructed to follow-up with his primary care physician in 5 to 7 days. Patient was instructed return if worse in any way. Patient understood and was agreeable with the plan. All questions were answered. Lab Data Labs: Laboratory Results - last 24 hr 02/14/23 02/14/23 13:14 13:55 WBC 7.7 RBC 5.54 Hgb 16.1 Hct 49.5 MCV 89.4 MCH 29.1 MCHC 32.5 RDW Std Deviation 42.1 RDW Coeff of Nessa 12.8 Plt Count 174 MPV 10.5 Immature Gran % (Auto) 0.700 Neut % (Auto) 59.6 Lymph % (Auto) 21.2 Pine % (Auto) 10.3 H Eos % (Auto) 7.4 H Baso % (Auto) 0.8 Absolute Neuts (auto) 4.6 Absolute Lymphs (auto) 1.63 Nucleated RBC % 0 Sodium 141 Potassium 4.5 Chloride 106 Carbon Dioxide 30.0 Anion Gap 5 BUN 25 H Creatinine 1.24 Estim Creat Clear Calc 57.46 Est GFR (MDRD) Af Amer 75 Est GFR (MDRD) Non-Af 62 BUN/Creatinine Ratio 20.2 H Glucose 101 Calcium 9.5 Total Bilirubin 0.70 AST 16 ALT 28 Alkaline Phosphatase 92 Total Protein 8.2 Albumin 4.0 Globulin 4.2 Albumin/Globulin Ratio 1.0 Urine Color Yellow Urine Clarity Clear Urine pH 6.0 Ur Specific [place] 1.020 Urine Protein 15 H Urine Glucose (UA) Normal Urine Ketones Negative Urine Occult Blood Negative Urine Nitrite Negative Urine Bilirubin Negative Urine Urobilinogen Normal Ur Leukocyte Esterase 25 H Urine RBC 0 SEEN Urine WBC 0-5 SEEN Ur Squamous Epith Cells 0 SEEN Urine Bacteria 0 SEEN Urine Mucus 0 SEEN Radiography Diagnostic Testing: Clinical Impression(s) from Imaging Studies Abdomen/Pelvis CT 02/14/23 14:03 IMPRESSION: Fatty infiltration of the liver. Status post cholecystectomy. Borderline splenomegaly. Electronically Signed: Brandon Foster MD at 14:49 EST , Discharge Plan Triage Chief Complaint: Abd Pain ED Midlevel Provider: Ace Joshi ED Provider: Beto Bermudez Dx/Rx/DC Orders Clinical Impression: Abdominal pain Instructions: Abdominal Pain Prescriptions: No Action sertraline 100 mg tablet 100 mg PO DAILY lisinopril 10 mg tablet 10 mg PO DAILY zinc 100 mg Tablet 100 mg PO MOWEFR ginseng 100 mg Capsule 100 mg PO DAILY vitamin E 200 unit Capsule 200 unit PO MOWEFR ascorbic acid (vitamin C) [Vitamin C] 250 mg Tablet 250 mg PO DAILY magnesium 100 mg Capsule 100 mg PO DAILY folic acid 1 mg Tablet 1 mg PO DAILY pyridoxine (vitamin B6) [Vitamin B-6] 100 mg Tablet 100 mg PO DAILY saw palmetto 500 mg Capsule 1,000 mg PO DAILY cholecalciferol (vitamin D3) [Vitamin D3] 50 mcg (2,000 unit) Capsule 50 mcg PO MOWEFR omeprazole 40 mg capsule,delayed release(DR/EC) 20 mg PO DAILY oxycodone-acetaminophen [Percocet] 5-325 mg tablet 1 - 2 tab PO Q4H PRN (Reason: pain) 5 Days Qty: 20 0RF Primary Care Provider: Lia Young Referrals: Lia Young DO [Primary Care Provider] - Activity Restrictions/Additional Instructions: You had a normal laboratory values, you had a normal CT scan. Please return for worsening symptoms such as increasing pain, nausea, vomiting, diarrhea, fever or chills. Disposition Disposition: Home, Self Care Discharge Date/Time: 02/14/23 15:37
[2023-02-14 14:17] LABS: Color, Urine Yellow (Yellow); Glucose, Dipstick Normal (Normal); Ketone-Dipstick Negative (Negative); Leukocyte Esterase-Dipstick 25 /ul (Negative); Nitrite-Dipstick Negative (Negative); Occult Blood-Urine Negative /ul (Negative); Protein-Dipstick 15 mg/dl (Negative); Urine Bilirubin Dipstick Negative (Negative); Urine Clarity Clear (Clear); Urine Urobilinogen Normal (Normal)
[2023-02-14] MEDS: 0.9% Normal Saline (1000mL) 1,000 ML 999 ML IV (14:28)
[2023-02-14 14:39] LABS: White Blood Cells 0-5 SEEN /hpf (0-5)
[2023-02-14] MEDS: Ketorolac 15 MG/ML Vial IV (15:25)
== END 2023-02-14 15:37 | disposition home or self-care (01) ==
PROVIDERS: Emergency Provider Emergency Medicine; PCP Internal Medicine; Visit Provider Emergency Medicine
DX: R10.813 Right lower quadrant abdominal tenderness (principal); I10 Essential (primary) hypertension; E78.5 Hyperlipidemia, unspecified; K21.9 Gastro-esophageal reflux disease without esophagitis; F41.9 Anxiety disorder, unspecified; M19.90 Unspecified osteoarthritis, unspecified site; F17.220 Nicotine dependence, chewing tobacco, uncomplicated; Z79.899 Other long term (current) drug therapy
CPT/HCPCS: 74177; 80053; 81001; 85025; 96361; 96374; 99282; J7030; Q9967; A4216